=== PATIENT | female | born 1950 | race Caucasian/White ===

== ENCOUNTER → 2022-03-16 | Outpatient (CLI) | payer MEDICARE, SELFPAY ==
--- NOTE | 2022-03-16 | IMM_PTH ---
PATIENT: AARON ANDREW LOC: [facility] U#:[id number] AGE/SX: 71/F ROOM: RE03/16/[address]: Dr. Brian Brumfield MD : 1950 BED: DIS: 03/16/2022 SPEC #: [id number] RECD: 03/21/22 09:23 STATUS: DIMITRY REQ #: [id number] HAFSA: 03/16/22 00:[address]: Brian Brumfield DEPT: IMMUNOHISTOCHEMISTRY RECD BY: Mojgan Paniagua ENTERED: 03/21/22 09:24 SP TYPE: IMMUNO OTHR DR: Dr. Roya Puga, DO Tissues: Right breast, NOS Procedures: SMA (add) CALPONIN-1 (add) CD45 (add) CK5-6 (add) CK7 (add) CK8 (add) E-CAD (add) ER (add) HER2 FAB (add) KI-67 (add) MAMM (add) P53 (add) MD (add) Pankeratin (initial) GATA3 (add) PHYSICIAN & [address] [address] SPECIMEN INFORMATION: Tissue Source: Right breast: Clinical Info: Right breast mass Specimen Number: [id number] CPT code: 02831, 82695 x11, 61076 x3 METHODOLOGY: Deparaffinized sections of prefer/formalin-fixed tissue or PAP/DQ stained slides are incubated with monoclonal/polyclonal antibodies/oligonucleotide probes. Localization is made via biotin free immunoperoxidase method. Appropriate controls are performed and reacted as expected. Results on target cell population are indicated in the following table: RESULTS: ANTIBODY / CLONE RESULT AE1-3 (AE1/AE3/PCK26) positive CK7 (OV-TL12/30) positive CK8 (74kgxjI14) positive CD45 (RP2/18) negative Calponin-1 (ZI287J) negative Actin (1A4) negative CK5-6 (D5 & 1684) negative P53 (DO-7) negative Ki-67 (30-9) positive, 40% E-Cad (ECH-6) negative GATA3 (L50-823) positive Mammaglobin (31A5) positive MORPHOMETRIC ANALYSIS ER (clone 6F11) >95%, moderate intensity MD (clone 16/1E2) 0% Her-2Neu (clone CB11) 0 The prognostic test for HER2 is performed on formalin-fixed paraffin embedded tissue. A 3+ (positive) staining pattern is defined as intense, homogeneous, complete, circumferential membranous staining in >10% of contiguous tumor cells. A similar weak (2+) staining pattern is interpreted as equivocal. MITESH follow-up testing is recommended for all equivocal cases. Positivity/negativity for ER/MD is reported if > or < 1% of the tumor cells are immuno- reactive, respectively. The ASCO/CAP criteria is used for scoring. Reference: Journal of Clinical Oncology, 2013; 31:8564-4022 & 2010; 16:4570-4289. Duration of fixation: 53.5 Hrs; Sample Adequate: Yes. These assays have not been validated on decalcified tissues. Results should be interpreted with caution given the likelihood of false negativity on decalcified specimens. These tests were developed and their performance characteristics determined by [facility]. They may not have been cleared or approved by the U.S. Food and Drug Administration. The FDA has determined that such clearance or approval is not necessary. The above immunohistochemical/dualISH markers are ordered and reviewed by the Pathologist. INTERPRETATION: Right breast mass, core biopsy: Invasive lobular carcinoma, nuclear grade 1. Positive for estrogen receptors (favorable prognostic indicator). Negative for progesterone receptors (unfavorable prognostic indicator). Negative for overexpression of MHC4lts. AM:fish 03/22/2022
--- NOTE | 2022-03-16 14:00 | BRBX_PTH ---
PATIENT: AARON ANDREW LOC: [facility] U#:[id number] AGE/SX: 71/F ROOM: RE03/16/[address]: Dr. Brian Brumfield MD : 1950 BED: DIS: 03/16/2022 SPEC #: [id number] RECD: 03/16/22 16:27 STATUS: DIMITRY REDeena #: [id number] HAFSA: 03/16/22 14:[address]: Brian Brumfield DEPT: SURGICAL PATHOLOGY RECD BY: Kristen Kidd ENTERED: 03/17/22 08:42 SP TYPE: BREAST BX OTHR DR: Dr. Roya Puga, DO Tissues: Right breast, NOS Procedures: Surgery Specimen Level IV HEADER OPERATION: Right breast biopsy PRE-OP DIAGNOSIS: Right breast mass TISSUE SUBMITTED: Right breast tissue MICROSCOPIC DIAGNOSIS Right breast mass, core biopsy: Invasive lobular carcinoma with the follow characteristics: Maximal length ? 3.2 mm Nuclear grade ? 05/23 See comment. AM:fish 03/22/2022 COMMENT Immunohistochemistry ([id number]) supports the above diagnosis. ER/IL/Lws5zwa studies are being performed on sections of tumor and the results from this study will be reported separately ([id number]). The biopsy shows tissue crush artifact. Clinical correlation is suggested. MICROSCOPIC DESCRIPTION Slides are reviewed. GROSS DESCRIPTION Received in fixative is one container labeled with the patient's name and designated right breast tissue. The specimen consists of multiple irregular fragments of robledo tissue that in aggregate measure 1 x 0.3 x 0.1 cm. The specimen is totally submitted in one cassette. / AM:fish 03/17/2022 TC:0 CPT: 56857
== END | disposition home or self-care (01) ==
LOC: LABSPEC 16:41
PROVIDERS: PCP Internal Medicine; Referring Provider Surgery; Visit Provider Surgery
DX: C50.911 Malignant neoplasm of unspecified site of right female breast (principal); Z17.0 Estrogen receptor positive status [ER+]
CPT/HCPCS: 88305; 88341; 88342

== ENCOUNTER → 2022-04-03 | Outpatient (CLI) | payer MEDICARE, SELFPAY ==
--- NOTE | 2022-04-03 11:06 | MRI_ITS ---
STUDY: BILATERAL BREAST MR WITHOUT AND WITH CONTRAST REASON FOR EXAM: Female, 71 years old. History of left breast cancer in 2005. Now with right breast cancer. TECHNIQUE: Multi-sequence multi-echo imaging of both breasts was performed with a dedicated breast coil. T1-weighted and T2-weighted images were performed before the administration of contrast. T1-weighted images were also performed after the intravenous administration of 12 mL of Clariscan contrast. COMPARISON: Right breast ultrasound dated March 09, 2022 and screening mammogram dated March 02, 2022. FINDINGS: RIGHT BREAST: The breasts are heterogenously dense, which may obscure small masses, with minimal background enhancement. Lobular enhancing mass measuring 1.6 cm x 1.4 cm x 1.2 cm at the 9:00 position of the right breast 8 cm behind the nipple just anterior to and adjacent to the chest wall without any definitive sign of chest wall involvement. Tissue clip marker artifact within the central portion of the mass. This lesion corresponds to the mammographic and ultrasonographic abnormality. LEFT BREAST: The breasts are heterogenously dense, which may obscure small masses, with minimal background enhancement. There are no abnormal enhancing masses or areas of non-mass enhancement in the left breast. There are no enlarged or abnormal lymph nodes. There is no abnormality in the visualized regions of the chest or liver. MRI/Breast Bilateral W/O and W IMPRESSION: Irregular enhancing mass at the 9:00 position 8 cm from the nipple within the right breast corresponding to the lesion seen on mammogram and ultrasound comparison studies. No other abnormality. CATEGORY: BIRADS Category 6: Known Biopsy-Proven Malignancy - Appropriate Action Should Be Taken. A letter regarding these results will be sent to the patient by the facility within 30 days. Electronically Signed: Migel King, at 14:06 EST ,
== END | disposition home or self-care (01) ==
LOC: MRI 11:06
PROVIDERS: PCP Internal Medicine; Referring Provider Surgery; Visit Provider Surgery
DX: C50.911 Malignant neoplasm of unspecified site of right female breast (principal)
CPT/HCPCS: 77049; A9575; A4216; C8908

== ENCOUNTER 2022-04-07 08:56 | Day surgery (SDC) | payer MEDICARE, SELFPAY ==
--- NOTE | 2022-04-03 11:36 | EKG12_ITS ---
Test Reason : PRE-OP Blood Pressure : / mmHG Vent. Rate : 052 BPM Atrial Rate : 052 BPM P-R Int : 136 ms QRS Dur : 066 ms QT Int : 438 ms P-R-T Axes : 028 002 003 degrees QTc Int : 407 ms Sinus bradycardia Otherwise normal ECG Confirmed by SALAZAR DUPONT, JOSELUIS ([id number]), editor trade journal GHANSHYAM MALDONADO ([id number]) on 04/04/2022 11:26:19 AM Referred By: Brian Brumfield Confirmed By:JOSELUIS LINCOLN MD
[2022-04-07] VITALS (9 sets, daily range): BP systolic 135–186; BP diastolic 59–98; PULSE 58–82; RESP 12–18; TEMP 36.1–36.4; O2SAT 97–100; BMI 24.1
--- NOTE | 2022-04-07 | IMM_PTH ---
PATIENT: AARON ANDREW LOC: [facility] [place] U#:[id number] AGE/SX: 71/F ROOM: RE04/07/[address]: Dr. Brian Brumfield MD : 1950 BED: DIS: 04/07/2022 SPEC #: [id number] RECD: 04/12/22 12:22 STATUS: DIMITRY REQ #: [id number] HAFSA: 04/07/22 00:[address]: Brian Brumfield DEPT: IMMUNOHISTOCHEMISTRY RECD BY: Mojgan Paniagua ENTERED: 04/12/22 12:23 SP TYPE: IMMUNO OTHR DR: Dr. Roya Puga, DO Tissues: A - Axillary lymph node, NOS Procedures: CK7 (add) Pankeratin (initial) PHYSICIAN & INSTITUTION [place] [address] SPECIMEN INFORMATION: Tissue Source: A - Right sentinel lymph node Clinical Info: Right breast cancer Specimen Number: [id number] CPT code: 03234, 10098 METHODOLOGY: Deparaffinized sections of prefer/formalin-fixed tissue or PAP/DQ stained slides are incubated with monoclonal/polyclonal antibodies/oligonucleotide probes. Localization is made via biotin free immunoperoxidase method. Appropriate controls are performed and reacted as expected. Results on target cell population are indicated in the following table: RESULTS: ANTIBODY / CLONE RESULT Block A AE1-3 (AE1/AE3/PCK26) negative CK7 (OV-TL12/30) negative These tests were developed and their performance characteristics determined by [facility]. They may not have been cleared or approved by the U.S. Food and Drug Administration. The FDA has determined that such clearance or approval is not necessary. The above immunohistochemical/dualISH markers are ordered and reviewed by the Pathologist. INTERPRETATION: A. Right sentinel lymph node, biopsy: One lymph node, negative for metastatic carcinoma. SJ:fish 04/14/2022
--- NOTE | 2022-04-07 09:00 | NM_ITS ---
PROCEDURE: NUCLEAR MEDICINE Injection [place] Node - RIGHT breast(s). REASON FOR EXAM: Female, 71 years old. Right breast cancer. TECHNIQUE: [place] node localization using radionuclide methods of the RIGHT breast(s) was performed following subcutaneous administration of 1.1 mCi of of sulfur colloid Tc-99m. FINDINGS: 1.1 mCi of Tc labeled sulfur colloid was injected subcutaneously in the right periareolar region. NM/Lymph Node Injection Only IMPRESSION: Injection of 1.1 mCi of technetium labeled sulfur colloid subcutaneously for sentinel node imaging. Electronically Signed: Musa Holbrook MD at 12:08 EST ,
[2022-04-07] MEDS: Lactated Ringers 1,000 ML 15 ML IV (09:36)
[2022-04-07] MEDS: Scopolamine 1mg/72hr Patch 1 PATCH TD (09:37)
--- NOTE | 2022-04-07 11:10 | PCM.HP.BLA ---
History and Physical Date of Admission: 04/07/22 Intake Intake Visit Reasons:?REVIEW BIOPSY RESULTS Chief Complaint: Review Breast Biopsy Results Cheese Maker Required: No Is patient in pain?: No Allergies diphenhydramine [From Benadryl] Adverse Reaction (Severe, Verified 03/23/22 09:44) Nauseamorphine Adverse Reaction (Severe, Verified 03/23/22 09:44) Nauseapromethazine Adverse Reaction (Severe, Verified 03/23/22 09:44) Other Medications cholecalciferol (vitamin D3) 25 mcg (1,000 unit) capsule (Vitamin D3) 1,000 unit PO DAILY 01/12/17 [History Confirmed 03/23/22] propranolol 60 mg capsule,24 hr,extended release 60 mg PO DAILY 01/12/17 [History Confirmed 03/23/22] sumatriptan succinate 25 mg tablet (Imitrex) 25 mg PO .X1 PRN 01/18/17 [History Confirmed 03/23/22] Flonase Allergy Relief 2 spry DAILY 02/24/19 [History Confirmed 03/23/22] ascorbic acid (vitamin C) 500 mg capsule 500 mg PO DAILY 02/24/19 [History Confirmed 03/23/22] benzonatate 100 mg capsule 100 mg PO TID PRN PRN Cough 02/24/19 [History Confirmed 03/23/22] esomeprazole magnesium 40 mg capsule,delayed release 40 mg PO DAILY 02/24/19 [History Confirmed 03/23/22] ibuprofen 200 mg tablet 400 mg PO Q6H 02/24/19 [History Confirmed 03/23/22] loratadine 10 mg tablet 10 mg PO DAILY 02/24/19 [History Confirmed 03/23/22] multivitamin with minerals 1 ea PO DAILY 02/24/19 [History Confirmed 03/23/22] polyethylene glycol 3350 17 gram oral powder packet 17 g PO DAILY 02/24/19 [History Confirmed 03/23/22] sucralfate 1 gram tablet 1 g PO QAC 03/03/21 [History Confirmed 03/23/22] Subjective Details: Patient reports no issues after biopsy Objective Details: Right breast with small breast mass laterally Coding Level of Care Code Off vis,est,level 3 Diagnoses Breast cancer, right? C50.911 [facility] Medical History?(Updated 03/23/22 @ 10:[address] 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 Mother Kidney disease DiabetesFather Heart disease Social History? Smoking Status:? Never smoker Assessment and Plan (No Qualifiers) Assessment and Plan (1) Breast cancer, right: ?Status:?Acute ?Plan: Patient has invasive lobular carcinoma of the right upper outer breast.? Patient's breast cancer is ER positive, OK negative, HER2 negative.? I recommend obtaining an MRI of the breast due to the fact that it is lobular in nature.? The patient will also see oncology prior to surgery.? She is seeing oncology today.? As long as they are in agreement I would plan for right sentinel lymph node biopsy and right partial mastectomy.? I discussed surgery with the patient in detail.? I discussed right partial mastectomy and sentinel lymph node biopsy with ultrasound-guided wire localization.? I discussed the possibility of axillary dissection if there are positive nodes or inability to identify sentinel lymph nodes with dye or radiotracer.? I discussed the risks of bleeding, infection, nerve injury, lymphedema.? Patient understands all the risks and is when to proceed.? Plan for surgery in 2 weeks if MRI is able to be performed.? If the MRI is unable to be performed before then then I would delay surgery until the week of April 17. Brian Brumfield MD Pager: [facility] [address] [place] [address], [address] [place] [address] Office: I have examined the patient and the H&P has been reviewed. There are no clinical changes since date of exam.
--- NOTE | 2022-04-07 11:30 | BREAST_PTH ---
PATIENT: AARON ANDREW LOC: [facility] [place] U#:[id number] AGE/SX: 71/F ROOM: RE04/07/[address]: Dr. Brian Brumfield MD : 1950 BED: DIS: 04/07/2022 SPEC #: [id number] RECD: 04/07/22 12:37 STATUS: DIMITRY REDeena #: [id number] HAFSA: 04/07/22 11:[address]: Brian Brumfield DEPT: SURGICAL PATHOLOGY RECD BY: Lizette Lisa ENTERED: 04/07/22 13:34 SP TYPE: BREAST OTHR DR: Dr. Roya Puga, DO Tissues: A - LYMPH NODE BIOPSY B - Right breast, NOS C - Right breast, NOS Procedures: Frozen Section (charge) Surgery Specimen Level IV Surgery Specimen Level V HEADER OPERATION: Partial mastectomy, sentinel lymph node biopsy, ultrasound guided PRE-OP DIAGNOSIS: Right breast cancer TISSUE SUBMITTED: A - Right sentinel lymph node, FS, B - Right breast mass, C - New medial margin right breast mass, suture hung new margin FROZEN SECTION DIAGNOSIS A. Right sentinel lymph node, biopsy: One lymph node, negative for metastatic carcinoma. LIMA:[place] 04/07/2022 MICROSCOPIC DIAGNOSIS A. Right sentinel lymph node, biopsy: One lymph node, negative for metastatic carcinoma. See comment. B. Right breast mass, lumpectomy/partial mastectomy: Invasive lobular carcinoma. Lobular carcinoma in situ. Atypical lobular hyperplasia. C. New medial margin right breast mass: Focal lobular carcinoma in situ. Atypical lobular hyperplasia. See comment. LIMA:fish 04/12/2022 COMMENT A. The lymph node is negative for metastatic carcinoma on multiple H & E levels and immunohisto-chemical stains for cytokeratins ([id number]). C. Lobular carcinoma in situ is 0.9 cm away from the new margin. BREAST CANCER SUMMARY Procedure - excision Specimen laterality - right Tumor: Tumor site ? not specified Tumor size ? 1.5 x 1.5 x 1 cm Histologic type ? invasive lobular carcinoma Histologic grade (Tania grade): Glandular/tubular differentiation score - 3 Nuclear pleomorphism score - 2 Mitotic count score - 1 Overall grade - grade 2 (score of 6) Tumor focality ? single focus of invasive carcinoma. Ductal carcinoma in situ ? not identified Lobular carcinoma in situ - present Tumor extension: Skin ? skin is not present. Nipple ? not applicable Skeletal muscle ? no skeletal muscle is present. Margins: Invasive carcinoma margin ? the tumor is <0.1 cm away from the closest medial margin (as per surgeon). In specimen C, however, the additional margin measuring 1 cm in thickness and is negative for invasive carcinoma. Regional lymph nodes: Number of lymph nodes examined - 1 Number of sentinel lymph nodes examined - 1 Number of lymph nodes with macrometastases, micrometastases or isolated tumor cells - 0 Treatment effect - no known presurgical therapy. Lymphvascular invasion ? not identified Dermal lymphvascular invasion ? not applicable Distant metastasis ? not applicable Additional Pathologic Findings ? extensive atypical lobular hyperplasia. - Fibrocystic changes and intraductal hyperplasia without atypia. - Radial scar. Ancillary Studies: Previously performed on same tumor ([id number] / [id number]) ER: positive (>95% moderate intensity) UT: negative (0%) Soq3hke: negative (0) Microcalcifications ? not identified Clinical History - Please make reference to previous specimen ([id number]) with diagnosis of ?invasive lobular carcinoma.? PATHOLOGIC STAGE: pT1c pN0(sn) pMx The above summary is in compliance with [employer] [place] [employer] (CAP) Cancer Protocols Checklist and [place] Joint Committee on Cancer (AJCC), Staging Manual, 8th Ed. Case has been reviewed in consultation with Dr. Castellano who concurs with the above diagnosis. IDC:AM MICROSCOPIC DESCRIPTION Slides are reviewed. GROSS DESCRIPTION A - Received fresh for frozen section diagnosis labeled with the patient's name is a specimen designated right sentinel lymph node, axilla. The specimen consists of a piece of yellow adipose tissue containing a nodule consistent with lymph node measuring 2 x 2 x 0.7 cm. One lymph node is identified and it is bisected and submitted entirely for frozen section diagnosis in one cassette. / :fish 04/07/2022 B - Received fresh for intraoperative consultation labeled with the patient's name is a specimen designated right breast mass. The specimen consists of a piece of fibroadipose tissue without needle localization and measuring 6.5 x 5 x 3 cm. The specimen is oriented by sutures as follows: short - superior, long - lateral. The specimen is inked as follows: anterior - yellow, posterior - black, superior - blue, inferior - green, medial - red and lateral - orange. Serial sections reveal a robledo, indurated tumor mass measuring 1.5 x 1.5 x 1 cm. This tumor is close to one margin and as per surgeon this represents the medial margin. This information is conveyed to the surgeon intraoperatively. Sections of the rest of the specimen reveal robledo-yellow adipose cut surfaces mixed with robledo-white fibrous areas. Guide sections are submitted in 12 cassettes as follows: 1 & 2 - perpendicular margin, 3-6 - tumor with closest margin and as per surgeon this represents medial margin, 7-12 - telesales representative sections from the other area. Sections are submitted after additional fixation. / :fish 04/10/2022 C - Received in fixative is one container labeled with the patient's name and designated new medial margin, suture hung new margin. The specimen consists of a piece of yellow adipose tissue measuring 4.5 x 2.8 x 1 cm. The specimen is inked as follows: new margin - black, old margin - blue. Sections reveal yellow adipose cut surface without any mass lesion. The entire specimen is submitted in five cassettes from one end to another end. Sections are submitted after additional fixation. / SJ:fish 04/10/2022 TC:0 CPT: 05657 x2, 70501, 58335, 37949
[2022-04-07] MEDS: Cefazolin 2 GM in 0.9% Normal Saline 100 ML IV (11:58)
[2022-04-07] MEDS: Isosulfan Blue 1% 5 ML Vial (12:20)
[2022-04-07] MEDS: 0.9% Normal Saline (Pres. free 10 ML Vial (12:20)
[2022-04-07] MEDS: Bupivacaine 0.25%-Epi/Pf 1:200,000 10 ML (12:25)
--- NOTE | 2022-04-07 13:00 | BI_ITS ---
SURGICAL BREAST SPECIMEN RADIOGRAPH CLINICAL: Document presence of tissue clip marker in biopsy specimen. FINDINGS: Specimen shows presence of tissue clip marker. Electronically Signed: Musa Holbrook MD at 13:21 EST , BI/Needle Loc 1st Lesion IMPRESSION: undefined
--- NOTE | 2022-04-07 13:00 | RAD_ITS ---
STUDY: X-RAY CHEST REASON FOR EXAM: Female, 71 years old. LOST WIRE IN OR TECHNIQUE: Lateral view COMPARISON: None. FINDINGS: No radiopaque foreign body is seen. RAD/Chest 1 View IMPRESSION: No radiopaque foreign body is seen. Electronically Signed: Musa Holbrook MD at 13:21 EST ,
--- NOTE | 2022-04-07 13:54 | RAD_ITS ---
STUDY: X-RAY CHEST REASON FOR EXAM: Female, 71 years old. MISSING NEEDLE LOC WIRE TECHNIQUE: Single AP portable view of the chest. COMPARISON: None. FINDINGS: A 9.4 cm localization wire is seen overlying the right inferior hemithorax. RAD/Chest PA and Lateral IMPRESSION: 19.4 cm localization wire is seen overlying the right lower inferior hemithorax. Electronically Signed: Musa Holbrook MD at 14:37 EST ,
--- NOTE | 2022-04-07 13:54 | RAD_ITS ---
STUDY: X-RAY CHEST REASON FOR EXAM: Female, 71 years old. MISSING NEEDLE LOC WIRE TECHNIQUE: Single AP portable view of the chest. COMPARISON: None. FINDINGS: There is evidence of a needle localization wire overlying the lower right hemithorax. RAD/Chest PA and Lateral IMPRESSION: A needle localization wire is seen overlying the lower right hemithorax. Electronically Signed: Musa Holbrook MD at 14:36 EST ,
--- NOTE | 2022-04-07 14:28 | CT_ITS ---
STUDY: CT CHEST WITHOUT CONTRAST REASON FOR EXAM: Female, 71 years old. Retained foreign body RADIATION DOSAGE (If Supplied By Facility): CTDIvol = ( 8.29 ) mGy, DLP = ( 269.26 ) mGycm TECHNIQUE: Transaxial imaging was performed without the administration of intravenous contrast material. Multiplanar coronal and sagittal images were reformatted. Individualized dose optimization techniques were used for this CT. COMPARISON: No relevant priors. FINDINGS: CHEST The needle localization wire is seen in the posterior aspect of the right pleural cavity. Patient status post right lumpectomy. Surgical clips are seen in the axillary regions. Minimal bilateral pleural effusions with bibasilar atelectasis slightly more prominent at the right lung base. There is no demonstrated pleural abnormality. Normal heart and pericardium. There are multiple small lymph nodes within the mediastinum, which are normal in size and morphology most compatible with reactive lymph hyperplasia. Normal hilar regions. Normal unenhanced pulmonary arteries. There is atherosclerotic calcification of the aortic arch with tortuosity and elongation of the aortic arch and descending thoracic aorta. Normal osseous structures. There is no demonstrated abnormality of the visualized upper abdomen. Large hiatal hernia. There are diffuse degenerative changes of the visualized lumbar spine. CT/Chest without Contrast IMPRESSION: The needle localization wire is seen in the posterior pleural surface on the right side. Electronically Signed: Musa Holbrook MD at 15:25 [facility] ,
--- NOTE | 2022-04-07 16:07 | OP.PCM_ITS ---
Report of Operation Date of Procedure: 04/07/22 Pre-Operative Diagnosis: Invasive lobular carcinoma of the right breast lower o uter quadrant Post-Operative Diagnosis: Same Surgery/Procedure Performed:: 1. Ultrasound-guided wire localization of right breast mass 2. Right partial mastectomy 3. Right sentinel lymph node biopsy Specimen's removed: 1. Right axillary lymph node 2. Right partial mastectomy 3. New medial margin Description of Procedure: The patient was brought back to the operating room and general anesthesia was induced. The right breast was skin prepped. Ultrasound was used to localize th e breast mass. The Kopan's needle was placed into the breast mass under direct visualization and the wire was placed and the needle was removed. Next the Lymphazurin was injected in the retroareolar space. 5 cc of saline was also injected in the retroareolar space and the breast was massaged. During the massage of the breast the wire advanced into the breast. Next the right breast and axilla were prepped and draped in usual sterile fashion. An incision was made in the axilla and deepened to the axillary fascia. Axillary fascia was opened and then the probe was used to localize the blue lymph node. The lymph node was dissected free using clips and sharp dissection. The 10-second count was performed and there was no other lymph node in the axilla that was blue or radioactive. There is good hemostasis. The axilla was packed with wet gauze. Frozen section of the lymph node came back negative for metastatic disease. Next a curvilinear incision was made on the breast. The wire was unable to be identified in the subcutaneous tissue. The mass was palpable and dissection was carried toward the mass. The mass was circumferentially dissected free using electrocautery. It was marked and sent for pathology. It abutted the chest wall. Since it was so close to the chest wall a new medial margin was taken consisting of breast tissue and the lateral chest wall fascia. This was marked and sent for pathology. X-ray of the specimen indicated the clip but no wire. Next the cavity was inspected and there did not appear to be a wire in the cavity. It was irrigated and suctioned dry and hemostasis was obtained use electrocautery. The margins came back close on the medial side but the medial margin had already been reexcised. Due to the wire being unable to be found a cross view image was obtained with portable x-ray. The wire was not able to be identified. Next the incisions were closed with interrupted 3-0 Vicryl suture and running 4-0 Monocryl suture and Dermabond. After all the incisions were closed an AP chest x-ray was performed and it appeared that the wire was on the right side of the chest but it was very medial. Under the patient was checked as well as the drapes and gowns but the wire was not identified. Next fluoroscopy was used on the right chest and the wire was localized to be medial to the cavity. The right breast was reprepped and draped and the breast incision was reopened. The cavity was examined once more and using instruments under fluoroscopy it appeared that the wire did not move with the breast tissue. The cavity was irrigated and suctioned and dried and reclosed with interrupted Vicryl suture and running 4-0 Monocryl and Dermabond was reapplied. Patient was then awoken and taken to PACU. After arriving in PACU the patient was sent for stat chest CT. The chest CT revealed that the wire was in the pleural space on the right posteriorly. There was no pneumothorax. The wire must have migrated during placement into the chest cavity and during the massage it moved forward into the pleural space. There appeared to be no injury to the lung. I discussed the case with a thoracic surgeon from [facility]. At this time it appears the wire is running parallel to the lung. The patient is currently stable and all of her vitals are stable and she does not have any shortness of breath or chest pain. The decision was made to have the patient follow-up with the thoracic surgeon on Sunday. At that point he will decide how to deal with the localization wire. The patient was given postoperative instructions and will call me if anything happens over the weekend and I will obtain a chest x-ray and placed a chest tube if necessary. This was discussed with the patient's family and the patient at length and they are in agreement with the plan. Complications Migration of the localization wire into the right chest pleural space Admit VTE Documentation VTE Mechan Device Prophylaxis: SCD's
--- NOTE | 2022-04-07 16:18 | EX.PCM.DISCH ---
Discharge Instructions Procedure Breast Surgery Diet Discharge Diet: No restrictions Activity Discharge Activity: May Not Drive (for 2-3 days or while taking narcotic pain medications.) and May Shower May shower in (days): 1 Lifting Restrictions: 15 lbs for 1 week Additional Activity Instructions:: Please call a physician or return to the ER if you are having any chest pain or shortness of breath. Dressing / Incision Call your doctor if your incision/area has: Continuous Slow Oozing, Sudden Increased Bleeding, Increased Pain/ Swelling, Increased Redness, Foul Smelling Discharge and Swelling at the incision site Call your doctor if you observe: Fever of 101 or Higher and Shortness of breath Suture Line Care: Avoid Pulling/Pushing and Avoid Pinching/Bending Follow Up Care Please Follow Up With: Brian Brumfield MD When: Please call to schedule 2 week follow up appointment. [phone] Test Results: Follow-up with Dr. Martinez at [facility] on Sunday. They will call your cell to make an appointment. Discharge Plan Admission Attending Provider: Brian Brumfield Primary Care Provider: Roya Puga Instructions Additional Instructions / Restrictions: Ibuprofen and Tylenol alternating for pain. Oxycodone for breakthrough pain. Discharge Orders/Prescriptions Prescriptions: New oxycodone 5 mg tablet 5 - 10 mg PO Q6H PRN (Reason: pain) 5 Days Qty: 15 0RF No Action propranolol 60 MG capsule 40 mg PO BID cholecalciferol (vitamin D3) [Vitamin D3] 1,000 UNIT capsule 1,000 unit PO DAILY sumatriptan succinate [Imitrex] 25 MG tablet 25 mg PO .X1 PRN multivitamin with minerals 1 EACH tablet 1 ea PO DAILY loratadine 10 MG tablet 10 mg PO DAILY Flonase Allergy Relief 2 spry NASAL DAILY Rx Instructions: SPRAY 2 SPRAYS BY INTERNASAL ROUTE EVERY DAY IN EACH NOSTRIL ibuprofen 200 MG tablet 400 mg PO Q6H PRN (Reason: Pain) esomeprazole magnesium 40 mg capsule,delayed release(DR/EC) 40 mg PO DAILY Label Comments: TAKE 1 CAPSULE BY MOUTH EVERY DAY Citrucel 500 mg Tablet 1,000 mg PO DAILY Referrals / Follow Up: Roya Puga DO [Primary Care Provider] - Disposition Disposition (needs filled in before D/C Order can be placed): Home, Self Care
== END 2022-04-07 18:47 | disposition home or self-care (01) ==
LOC: SDC 09:02 → AC 09:02
PROVIDERS: PCP Internal Medicine; Referring Provider Surgery; Visit Provider Surgery
PROC: (CPT 19301; principal; 2022-04-07 11:15)
DX: D05.01 Lobular carcinoma in situ of right breast (principal); T81.590A Other complications of foreign body accidentally left in body following surgical operation, initial encounter; Y83.8 Other surgical procedures as the cause of abnormal reaction of the patient, or of later complication, without mention of misadventure at the time of the procedure; Y92.234 Operating room of hospital as the place of occurrence of the external cause; I89.0 Lymphedema, not elsewhere classified; K21.9 Gastro-esophageal reflux disease without esophagitis; Z79.899 Other long term (current) drug therapy
CPT/HCPCS: 19301; 38900; 19285; 38500; 19281; 38792; 71045; 71046; 71250; 76000; 88305; 88307; 88331; 88341; 88342; 93005; A9541; J7120; J2405; J3490; Q9968

== ENCOUNTER 2023-11-21 11:30 | Outpatient (RCR) | payer MEDICARE, SELFPAY ==
--- NOTE | 2023-09-19 11:54 | HP.OTEVAL_ITS ---
Patient's Visit Information Visit Information Visit Information: AARON ANDREW is a 72 year old F, referred to Occupational Therapy by Dr. Rickey Guerra DO, with a diagnosis of breast cancer with left UE lymphedema. Date of Evaluation: 09/19/23 Occupational Therapist: PACO Aranda/Anuj, CHT Subjective Subjective: This 72 year old female was seen was for OT eval with dx of left UE lymphedema. 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 Patient completed lumpectomy followed by adjuvant chemotherapy (AC x4 followed by Taxol x4), adjuvant radiation therapy and adjuvant hormone therapy for a total of 5 years, completed in August 2005. Pt states since her sx she has been mtg. her lymphedema. States she was using a sleeve but does not have it any longer- is wrapping at night because she has swelling during the day. Pt would like to know what she can do to further mtg. her lymphedema and states she is tired of wrapping her left UE at night. pt would like to know what she can do. ROM ROM Comments: no limitations with ROM Lymphedema (Circumferential Measure) MCP: [id number] left 19.5cm Wrist: right 15cm left 15.5cm Lower forearm: right 16cm left 19cm Largest forearm: right 21.5cm left 23cm Elbow: right 21.5cm 23cm Largest humerus: right 24cm 26.5cm Axcillary: right 28cm left 28.5cm Goals Goal: Patient will demonstrate a 20% reduction in edema by discharge: Yes Goal: Patient will demonstrate adequate knowledge of self-bandaging by the end of the first week.: Yes Goal: Patient will demonstrate adequate knowledge of self-massage by the end of the second week.: Yes Goal: Patient will demonstrate adequate knowledge of skin care and precautions by the end of the first week.: Yes Goal: Patient will demonstrate adequate knowledge of therapeutic exercises by discharge.: Yes Goal: Patient will select an appropriate compression garment and demonstrate adequate knowledge of correct donning technique, care and wearing schedule by discharge.: Yes Goal: Patient will voice understanding of need to replace compression garment every four to six months by discharge.: Yes Rehabilitation General Assessment: pt demo left UE stage II lymphedema. Pt would benefit from further skilled OT services 2-3 visits to ed. pt on life long mtg of lymphedema. Today therapist ed. pt on need of compression device / ed. her on compression alternatives velcro closure device. Pt receptive and states she would like using it vs wrapping at night. Therapist ed. pt that she would benefit from home compression pump with vest due to risk of truncal edema. pt receptive- will see pt in 4 weeks to see if conservative methods with change in garment are mtg her lymphedema better. pt receptive and agrees to POC. Anticipated Interventions Anticipated Interventions: Education re assistive Equipment, Education re Diagnosis, Education re Life-long lymphedema Management, Education re Self- Bandaging Techniques, Education re Skin Care and Precautions, Education re Self Massage Techniques, Education re Correct Donning Tech,Care&Wearing Sched Comp Garments and Home Program Visit Plan TEXT: Thank you for the opportunity to evaluate your patient. For Medicare and Medicare HMO plans, please review the plan of care and approve it. It will need to be FAXED BACK to us at [phone] for Medicare purposes. Please let me know if there are questions or concerns regarding this plan of care. Physician Signature: Date:
--- NOTE | 2023-11-21 11:52 | OTREVAL_ITS ---
Re-Evaluation Intro: Dr. Rickey Guerra, DO, It has been my pleasure to treat AARON ANDREW over the last 2 visits for breast cancer with left UE lymphedema. Please see the progress note below for an update on the occupational therapy plan of care! Subjective Subjective: pt arrives after getting compression alternative for left UE. pt states using the velcro alternative is easier to use and likes the ability to tighten up the device. Objective Objective/Function: Lymphedema (Circumferential Measure) MCP: left 19.5cm same as eval Wrist: left 15.5cm same as eval Lower forearm: left 19cm same as eval Largest forearm: left 23cm now 22cm a decrease Elbow: right 23cm now 22.5 cm decrease Largest humerus: 26.5cm now 24cm decrease Axillary: left 28.5cm now 28cm decrease pt has used conservative methods of wrapping for 20 years and use of elevation, exercise and compression devices to mtg. her lymphedema. pts left limb continues to demo. stage II lymphedema. pt would benefit from home compression pump to assist pt in better mtg of her left UE lymphedema. Plan Plan Visits in this POC: 3-4 visits Goals Goals Goal: Patient will demonstrate a 20% reduction in edema by discharge: Yes Goal: Patient will demonstrate adequate knowledge of self-bandaging by the end of the first week.: Yes Goal: Patient will demonstrate adequate knowledge of self-massage by the end of the second week.: Yes Goal: Patient will demonstrate adequate knowledge of skin care and precautions by the end of the first week.: Yes Goal: Patient will demonstrate adequate knowledge of therapeutic exercises by discharge.: Yes Goal: Patient will select an appropriate compression garment and demonstrate adequate knowledge of correct donning technique, care and wearing schedule by discharge.: Yes Goal: Patient will voice understanding of need to replace compression garment every four to six months by discharge.: Yes Patient Goals: Learn how to Manage Lymphedema Anticipated Interventions Anticipated Interventions Anticipated Interventions: Education re assistive Equipment, Education re Diagnosis, Education re Life-long lymphedema Management, Education re Self- Bandaging Techniques, Education re Skin Care and Precautions, Education re Self Massage Techniques, Education re Correct Donning Tech,Care&Wearing Sched Comp Garments and Home Program Re-Evaluation Ending Re-evaluation ending: Please do not hesitate to contact me at [phone] by phone or if you have questions or concerns regarding this new plan of care! Sincerely, Noa Roper, OTR/L, CHT
== END 2023-11-21 19:00 | disposition home or self-care (01) ==
LOC: OT 11:30
PROVIDERS: PCP Internal Medicine; Referring Provider Student in an Organized Health Care Education/Training Program; Visit Provider Student in an Organized Health Care Education/Training Program
DX: C50.911 Malignant neoplasm of unspecified site of right female breast (principal); C50.912 Malignant neoplasm of unspecified site of left female breast; I89.0 Lymphedema, not elsewhere classified
CPT/HCPCS: 97166; 97530